=== PATIENT | male | born 1995 | race Caucasian/White ===

== ENCOUNTER 2017-11-17 12:47 | Emergency (ER) | payer SELFPAY ==
[~2017-11-17] VITALS: Ht 167.6 cm; Wt 73.5 kg
[2017-11-17 13:02] VITALS: Ht 167.6 cm; Wt 73.5 kg
[2017-11-17 16:16] VITALS: BP 135/73
== END 2017-11-17 16:16 | disposition home or self-care (01) ==
LOC: ED 12:47
DX: J06.9 Acute upper respiratory infection, unspecified (principal)
CPT/HCPCS: J1885; Q0162

== ENCOUNTER 2018-04-28 10:33 | Emergency (ER) | payer SELFPAY ==
[~2018-04-28] VITALS: Ht 172.7 cm; Wt 73.2 kg
[2018-04-28 11:01] VITALS: BP 126/70
== END 2018-04-28 11:01 | disposition home or self-care (01) ==
LOC: ED 10:33
DX: H10.13 Acute atopic conjunctivitis, bilateral (principal)